=== PATIENT | male | born 1980 | race Caucasian/White ===

== ENCOUNTER 2017-09-11 00:27 | Emergency (ER) | payer OTHER ==
[~2017-09-11] VITALS: Ht 180.3 cm; Wt 90.0 kg
[2017-09-11 00:45] VITALS: BP 129/75; PULSE 125; RESP 18; TEMP 98.7; O2SAT 96
[2017-09-11 00:55] LABS: AUTOMATED NEUTROPHIL # 3.4 TH/MM3 (1.8-7.7); BASOPHIL # 0.1 TH/MM3 (0-0.2); EOSINOPHIL % 0.2 % (0.0-4.0); HEMATOCRIT 39.1 % (39.0-51.0); HEMOGLOBIN 13.9 GM/DL (13.0-17.0); LYMPH % 35.5 % (9.0-44.0); LYMPHOCYTE # 2.3 TH/MM3 (1.0-4.8); MEAN CELL VOLUME 99.5 FL (80.0-100.0); MEAN CORPUSCULAR HEMOGLOBIN 35.5 PG (27.0-34.0); MEAN CORPUSCULAR HGB CONC 35.6 % (32.0-36.0); MEAN PLATELET VOLUME 7.4 FL (7.0-11.0); MONO % 10.2 % (0.0-8.0); MONOCYTE # 0.7 TH/MM3 (0-0.9); NEUT % 53.1 % (16.0-70.0); PLATELET COUNT 184 TH/MM3 (150-450); RED BLOOD COUNT 3.93 MIL/MM3 (4.50-5.90); RED CELL DISTRIBUTION WIDTH 12.7 % (11.6-17.2); WHITE BLOOD COUNT 6.4 TH/MM3 (4.0-11.0)
[2017-09-11 01:13] LABS: ALBUMIN 4.5 GM/DL (3.4-5.0); ALT (GPT) 87 U/L (12-78); AST (GOT) 83 U/L (15-37); BICARBONATE 22.3 MEQ/L (21.0-32.0); BLOOD UREA NITROGEN 12 MG/DL (7-18); CALCIUM 8.5 MG/DL (8.5-10.1); CHLORIDE 104 MEQ/L (98-107); GLOMERULAR FILTRATION RATE 75 ML/MIN (>89); GLUCOSE,RANDOM 83 MG/DL (74-106); SODIUM (NA) 143 MEQ/L (136-145)
[2017-09-11 01:24] LABS: ALKALINE PHOSPHATASE 71 U/L (45-117); TOTAL BILIRUBIN ADULT 0.3 MG/DL (0.2-1.0); TOTAL PROTEIN 8.2 GM/DL (6.4-8.2)
[2017-09-11 01:25] LABS: ACETAMINOPHEN LESS THAN 2.0 MCG/ML (10.0-30.0)
[2017-09-11 01:53] VITALS: PULSE 98
--- NOTE | 2017-09-11 02:06 | PD ---
HPI Chief Complaint: Suicide Ideation/Attempt Time Seen by Provider: 00:45 Travel History International Travel<30 days: No Contact w/Intl Traveler<30days: No Traveled to known affect area: No History of Present Illness HPI Patient is 37-year-old male presenting to the emergency department under Myles act for psychiatric evaluation after making statements regarding hurting a coworker and shooting himself in the head. She reports that he has been drinking this evening. He denies any previous suicide attempt or psychiatric history. He states he got medical worker because he was trying to get him in trouble at work. Patient has no physical complaints at this time. He denies any hallucinations. He denies any illicit drug use. Symptom onset was fairly sudden related to the incident at work, symptoms are moderate in nature. PFSH Past Medical History Medical History: Denies Significant Hx Hx Anticoagulant Therapy: No Cardiovascular Problems: No Chemotherapy: No Cerebrovascular Accident: No Diabetes: No Respiratory: No ?: Not Past Surgical History Hysterectomy: No Social History Alcohol Use: Yes Tobacco Use: Yes Substance Use: Yes Allergies-Medications Reported Meds & Prescriptions Reported Meds & Active Scripts Active Review of Systems Except as stated in HPI: all other systems reviewed are Neg Psychiatric: Positive: Suicidal Ideations, Substance Abuse, Homicidal Ideation Physical Exam Exam Limitations: Intoxication Narrative GENERAL: Well-developed, well-nourished, alert male. Presenting in no acute distress. SKIN: Warm and dry. HEAD: Atraumatic. Normocephalic. EYES: Pupils equal and round. No scleral icterus. No injection or drainage. ENT: No nasal bleeding or discharge. Mucous membranes pink and moist. NECK: Trachea midline. No JVD. CARDIOVASCULAR: Tachycardic RESPIRATORY: No accessory muscle use. Clear to auscultation. Breath sounds equal bilaterally. GASTROINTESTINAL: Abdomen soft, non-tender, nondistended. Hepatic and splenic margins not palpable. MUSCULOSKELETAL: Extremities without clubbing, cyanosis, or edema. No obvious deformities. NEUROLOGICAL: Awake and alert. No obvious cranial nerve deficits. Motor grossly within normal limits. Five out of 5 muscle strength in the arms and legs. Normal speech. PSYCHIATRIC: Appropriate mood and affect; insight and judgment normal. Data Data Last Documented VS Vital Signs Date Time Temp Pulse Resp B/P (MAP) Pulse Ox O2 Delivery O2 Flow Rate FiO2 09/11/17 01:53 98 09/11/17 00:45 98.7 18 129/75 (93) 96 Orders Orders Complete Blood Count With Diff (09/11/17 00:45) Comprehensive Metabolic Panel (09/11/17 00:45) Thyroid Stimulating Hormone (09/11/17 00:45) Psych Screen (09/11/17 00:45) Drug Screen, Random Urine (09/11/17 00:45) Alcohol (Ethanol) (09/11/17 00:45) Salicylates (Aspirin) (09/11/17 00:45) Tylenol (Acetaminophen) (09/11/17 00:45) Labs Laboratory Tests Test 09/11/17 00:37 09/11/17 00:51 White Blood Count 6.4 TH/MM3 Red Blood Count 3.93 MIL/MM3 Hemoglobin 13.9 GM/DL Hematocrit 39.1 % Mean Corpuscular Volume 99.5 FL Mean Corpuscular Hemoglobin 35.5 PG Mean Corpuscular Hemoglobin Concent 35.6 % Red Cell Distribution Width 12.7 % Platelet Count 184 TH/MM3 Mean Platelet Volume 7.4 FL Neutrophils (%) (Auto) 53.1 % Lymphocytes (%) (Auto) 35.5 % Monocytes (%) (Auto) 10.2 % Eosinophils (%) (Auto) 0.2 % Basophils (%) (Auto) 1.0 % Neutrophils # (Auto) 3.4 TH/MM3 Lymphocytes # (Auto) 2.3 TH/MM3 Monocytes # (Auto) 0.7 TH/MM3 Eosinophils # (Auto) 0.0 TH/MM3 Basophils # (Auto) 0.1 TH/MM3 CBC Comment DIFF FINAL Differential Comment Blood Urea Nitrogen 12 MG/DL Creatinine 1.10 MG/DL Random Glucose 83 MG/DL Total Protein 8.2 GM/DL Albumin 4.5 GM/DL Calcium Level 8.5 MG/DL Alkaline Phosphatase 71 U/L Aspartate Amino Transf (AST/SGOT) 83 U/L Alanine Aminotransferase (ALT/SGPT) 87 U/L Total Bilirubin 0.3 MG/DL Sodium Level 143 MEQ/L Potassium Level 3.7 MEQ/L Chloride Level 104 MEQ/L Carbon Dioxide Level 22.3 MEQ/L Anion Gap 17 MEQ/L Estimat Glomerular Filtration Rate 75 ML/MIN Thyroid Stimulating Hormone 3rd Gen 1.070 uIU/ML Salicylates Level 2.6 MG/DL Acetaminophen Level LESS THAN 2.0 MCG/ML Ethyl Alcohol Level 398 MG/DL Urine Opiates Screen NEG Urine Barbiturates Screen NEG Urine Amphetamines Screen NEG Urine Benzodiazepines Screen NEG Urine Cocaine Screen NEG Urine Cannabinoids Screen POS MDM Medical Decision Making Medical Screen Exam Complete: Yes Emergency Medical Condition: Yes Interpretation(s) Laboratory Tests Test 09/11/17 00:37 09/11/17 00:51 White Blood Count 6.4 TH/MM3 Red Blood Count 3.93 MIL/MM3 Hemoglobin 13.9 GM/DL Hematocrit 39.1 % Mean Corpuscular Volume 99.5 FL Mean Corpuscular Hemoglobin 35.5 PG Mean Corpuscular Hemoglobin Concent 35.6 % Red Cell Distribution Width 12.7 % Platelet Count 184 TH/MM3 Mean Platelet Volume 7.4 FL Neutrophils (%) (Auto) 53.1 % Lymphocytes (%) (Auto) 35.5 % Monocytes (%) (Auto) 10.2 % Eosinophils (%) (Auto) 0.2 % Basophils (%) (Auto) 1.0 % Neutrophils # (Auto) 3.4 TH/MM3 Lymphocytes # (Auto) 2.3 TH/MM3 Monocytes # (Auto) 0.7 TH/MM3 Eosinophils # (Auto) 0.0 TH/MM3 Basophils # (Auto) 0.1 TH/MM3 CBC Comment DIFF FINAL Differential Comment Blood Urea Nitrogen 12 MG/DL Creatinine 1.10 MG/DL Random Glucose 83 MG/DL Total Protein 8.2 GM/DL Albumin 4.5 GM/DL Calcium Level 8.5 MG/DL Alkaline Phosphatase 71 U/L Aspartate Amino Transf (AST/SGOT) 83 U/L Alanine Aminotransferase (ALT/SGPT) 87 U/L Total Bilirubin 0.3 MG/DL Sodium Level 143 MEQ/L Potassium Level 3.7 MEQ/L Chloride Level 104 MEQ/L Carbon Dioxide Level 22.3 MEQ/L Anion Gap 17 MEQ/L Estimat Glomerular Filtration Rate 75 ML/MIN Thyroid Stimulating Hormone 3rd Gen 1.070 uIU/ML Salicylates Level 2.6 MG/DL Acetaminophen Level LESS THAN 2.0 MCG/ML Ethyl Alcohol Level 398 MG/DL Urine Opiates Screen NEG Urine Barbiturates Screen NEG Urine Amphetamines Screen NEG Urine Benzodiazepines Screen NEG Urine Cocaine Screen NEG Urine Cannabinoids Screen POS Vital Signs Date Time Temp Pulse Resp B/P (MAP) Pulse Ox O2 Delivery O2 Flow Rate FiO2 09/11/17 01:53 98 09/11/17 00:45 98.7 125 18 129/75 (93) 96 Differential Diagnosis Substance abuse versus mood disorder versus intoxication versus homicidal ideations or suicidal ideations versus other Narrative Course Patient is 37-year-old male presenting under Myles act for psychiatric evaluation. Patient admits to drinking alcohol this evening. He denies any current suicidal homicidal ideations. Patient is tachycardic on arrival otherwise vital signs are stable. Mental health screening discussed with the patient. Psychiatric screen ordered. Heart rate was reassessed, is currently 98. Labs reviewed, blood alcohol level is 398, urine drug screen is positive for marijuana. Labs are otherwise without acute findings. Patient is medically cleared for psychiatric evaluation. Diagnosis Primary Impression: Medical clearance for psychiatric admission Condition: Stable Cami Mclaughlin September 11, 2017 02:06
[2017-09-11 06:17] VITALS: BP 131/91; PULSE 78; RESP 18; O2SAT 98
[2017-09-11] MEDS ORDERED: RANITIDINE HCL SYRUP 150 MG/10 ML UDC PO ONE (06:30)
[2017-09-11] MEDS ORDERED: NICOTINE 14 MG/24 HR PATCH T-DERMAL ONE (06:30)
--- NOTE | 2017-09-11 08:27 | PD.PSY.CON ---
Provisional Diagnosis Admission Date Date of consultation 09/11/2017 [place] I. 1. Alcohol dependence with intoxication, intoxication now resolved [place] II. Deferred History of Present Illness Service Psychiatry Consult Requested By Emergency department Reason for Consult Myles act Primary Care Physician No Primary Care Physician HPI Mr. Stout is a 37-year-old male with no reported past psychiatric history who presents under a Myles act by law enforcement alleging that the patient was threatening to shoot himself in the head or hang himself. Patient's alcohol level was 398 and his urine toxicology was positive for cannabinoids. Reviewing the electronic medical record, I see no previous psychiatric contact within our system. Patient seen and examined. Chart reviewed. Case discussed with nursing staff. No evidence of any suicidality or homicidality while the patient has been under observation in the J pod. Nurse has obtained reassuring collateral from the patient's mother. On my examination today, the patient is clinically sober. He denies any suicidal or homicidal ideation, intent or plan and contracts for safety. He tells me "I love to live." Wants to live for his children. He denies the allegations in the Myles act. I can elicit no depressive or hypomanic/manic symptoms. He denies any audiovisual hallucinations. I can elicit no paranoia, no ideas of reference, no thought insertion or withdrawal or other delusional material. Remainder of the psychiatric ROS is negative. No acute physical complaints. Patient is requesting discharge from the ER this morning. Past psychiatric history: Patient denies a history of psychiatric diagnosis. He denies a history of inpatient or outpatient psychiatric treatment. He denies a history of suicide attempts. Family history: Patient denies family history of mental illness or suicide. Chemical dependency history: Patient reports that he drinks bourbon and coke. He does have a history of blackouts in the past. He has been having some troubles at work secondary to his drinking. He denies any other consequences. He denies any history of DTs or seizures. He denies any other substance use. Patient says that he views his alcohol use as problematic but is not interested in obtaining detoxification services today. He says that he will simply try to drink less. I have cautioned him against trying to detoxify himself, noting that this is a very risky proposition and that there is a not insignificant risk of morbidity and mortality associated with it. Social history: Patient was with his father. He has known his girlfriend Debra for 3 months. He is . He has 2 teenaged children who live with her grandmother. He works as a fast food fry cook. He is high school educated and has some college. Denies any history. Denies any legal history. Denies any access to guns or firearms. With patient's permission, I endeavored to reach his father at number listed in the Myles act (left generic VM) as well as patient's girlfriend (number is GFs workplace, and GF is not at work today). Review of Systems Except as stated in HPI: all other systems reviewed are Neg Past Family Social History Coded Allergies: No Known Allergies (Unverified , 09/11/17) Past Medical History Patient denies any medical problems and takes no general medical medications. Patient's Strengths (min. 2) Attending to basic needs. Verbally fluent. Physical Exam Physical examination completed by ED provider. On my examination today, the patient appears to be in no acute physical distress. No motor abnormalities noted. No signs of intoxication or withdrawal noted. Labs and vitals reviewed: Vital Signs Vital Signs Date Time Temp Pulse Resp B/P (MAP) Pulse Ox O2 Delivery O2 Flow Rate FiO2 09/11/17 06:17 78 18 131/91 (104) 98 Room Air 09/11/17 00:45 98.7 Lab Results Test 09/11/17 00:37 09/11/17 00:51 White Blood Count 6.4 TH/MM3 Red Blood Count 3.93 MIL/MM3 Hemoglobin 13.9 GM/DL Hematocrit 39.1 % Mean Corpuscular Volume 99.5 FL Mean Corpuscular Hemoglobin 35.5 PG Mean Corpuscular Hemoglobin Concent 35.6 % Red Cell Distribution Width 12.7 % Platelet Count 184 TH/MM3 Mean Platelet Volume 7.4 FL Neutrophils (%) (Auto) 53.1 % Lymphocytes (%) (Auto) 35.5 % Monocytes (%) (Auto) 10.2 % Eosinophils (%) (Auto) 0.2 % Basophils (%) (Auto) 1.0 % Neutrophils # (Auto) 3.4 TH/MM3 Lymphocytes # (Auto) 2.3 TH/MM3 Monocytes # (Auto) 0.7 TH/MM3 Eosinophils # (Auto) 0.0 TH/MM3 Basophils # (Auto) 0.1 TH/MM3 CBC Comment DIFF FINAL Differential Comment Blood Urea Nitrogen 12 MG/DL Creatinine 1.10 MG/DL Random Glucose 83 MG/DL Total Protein 8.2 GM/DL Albumin 4.5 GM/DL Calcium Level 8.5 MG/DL Alkaline Phosphatase 71 U/L Aspartate Amino Transf (AST/SGOT) 83 U/L Alanine Aminotransferase (ALT/SGPT) 87 U/L Total Bilirubin 0.3 MG/DL Sodium Level 143 MEQ/L Potassium Level 3.7 MEQ/L Chloride Level 104 MEQ/L Carbon Dioxide Level 22.3 MEQ/L Anion Gap 17 MEQ/L Estimat Glomerular Filtration Rate 75 ML/MIN Thyroid Stimulating Hormone 3rd Gen 1.070 uIU/ML Salicylates Level 2.6 MG/DL Acetaminophen Level LESS THAN 2.0 MCG/ML Ethyl Alcohol Level 398 MG/DL Urine Opiates Screen NEG Urine Barbiturates Screen NEG Urine Amphetamines Screen NEG Urine Benzodiazepines Screen NEG Urine Cocaine Screen NEG Urine Cannabinoids Screen POS Mental Status Examination Appearance: Appropriate Consciousness: Alert Orientation: x4 Motor Activity: Other (No motor abnormalities noted) Speech: Unremarkable Language: Adequate Fund of Knowledge: Adequate Attention and Concentration: Adequate Memory: Unremarkable (Grossly intact on clinical exam) Mood: Appropriate Affect: Appropriate Thought Process & Associations: Intact, Logical, Goal directed, Linear Thought Content: Appropriate Hallucination Type: None Delusion Type: None Suicidal Ideation: No Suicidal Plan: No Suicidal Intention: No Homicidal Ideation: No Homicidal Plan: No Homicidal Intention: No Mental Status Exam Remarks Insight and judgment are perhaps fair to poor, particularly with regards to substance use issues. Assessment & Plan Problem List: (1) Alcohol dependence with intoxication, uncomplicated ICD Codes: F10.220 - Alcohol dependence with intoxication, uncomplicated Assessment & Plan 37-year-old male with psychiatric history as detailed above who presents under Myles act. Now that he is clinically sober, the patient denies any suicidal or homicidal ideation. There is no evidence of unstable mental illness has defined under the Myles act in this patient at this time. He does have alcohol use issues. There is no evidence of significant self-care deficit. Nurse has obtained reassuring collateral from patient's mother. Synthesizing this information and based on the available evidence, I us administrative law judge that the patient does not presently meet the Myles act criteria. I have lifted the Myles act. I have recommended that he allow us to get him to a detoxification facility today , but he has declined. I have therefore recommended outpatient chemical dependency evaluation and treatment, and the nurse will provide the appropriate referrals. I have counseled the patient regarding warning signs for need to return to the psychiatric emergency room as part of a general safety plan. Patient is otherwise psychiatrically clear for discharge from the ED. Thank you very much for this consultation. John Webster MD September 11, 2017 08:27
--- NOTE | 2017-09-11 10:34 | PD ---
Data Data Last Documented VS Vital Signs Date Time Temp Pulse Resp B/P (MAP) Pulse Ox O2 Delivery O2 Flow Rate FiO2 09/11/17 06:17 78 18 131/91 (104) 98 Room Air 09/11/17 00:45 98.7 Orders Orders Complete Blood Count With Diff (09/11/17 00:45) Comprehensive Metabolic Panel (09/11/17 00:45) Thyroid Stimulating Hormone (09/11/17 00:45) Psych Screen (09/11/17 00:45) Drug Screen, Random Urine (09/11/17 00:45) Alcohol (Ethanol) (09/11/17 00:45) Salicylates (Aspirin) (09/11/17 00:45) Tylenol (Acetaminophen) (09/11/17 00:45) Diet Regular Basic (09/11/17 Breakfast) Ranitidine Liq (Zantac Liq) (09/11/17 06:30) Nicotine 14 Mg Patch.24 Hr (Habitrol 14 (09/11/17 06:30) Labs Laboratory Tests Test 09/11/17 00:37 09/11/17 00:51 White Blood Count 6.4 TH/MM3 Red Blood Count 3.93 MIL/MM3 Hemoglobin 13.9 GM/DL Hematocrit 39.1 % Mean Corpuscular Volume 99.5 FL Mean Corpuscular Hemoglobin 35.5 PG Mean Corpuscular Hemoglobin Concent 35.6 % Red Cell Distribution Width 12.7 % Platelet Count 184 TH/MM3 Mean Platelet Volume 7.4 FL Neutrophils (%) (Auto) 53.1 % Lymphocytes (%) (Auto) 35.5 % Monocytes (%) (Auto) 10.2 % Eosinophils (%) (Auto) 0.2 % Basophils (%) (Auto) 1.0 % Neutrophils # (Auto) 3.4 TH/MM3 Lymphocytes # (Auto) 2.3 TH/MM3 Monocytes # (Auto) 0.7 TH/MM3 Eosinophils # (Auto) 0.0 TH/MM3 Basophils # (Auto) 0.1 TH/MM3 CBC Comment DIFF FINAL Differential Comment Blood Urea Nitrogen 12 MG/DL Creatinine 1.10 MG/DL Random Glucose 83 MG/DL Total Protein 8.2 GM/DL Albumin 4.5 GM/DL Calcium Level 8.5 MG/DL Alkaline Phosphatase 71 U/L Aspartate Amino Transf (AST/SGOT) 83 U/L Alanine Aminotransferase (ALT/SGPT) 87 U/L Total Bilirubin 0.3 MG/DL Sodium Level 143 MEQ/L Potassium Level 3.7 MEQ/L Chloride Level 104 MEQ/L Carbon Dioxide Level 22.3 MEQ/L Anion Gap 17 MEQ/L Estimat Glomerular Filtration Rate 75 ML/MIN Thyroid Stimulating Hormone 3rd Gen 1.070 uIU/ML Salicylates Level 2.6 MG/DL Acetaminophen Level LESS THAN 2.0 MCG/ML Ethyl Alcohol Level 398 MG/DL Urine Opiates Screen NEG Urine Barbiturates Screen NEG Urine Amphetamines Screen NEG Urine Benzodiazepines Screen NEG Urine Cocaine Screen NEG Urine Cannabinoids Screen POS MDM Medical Record Reviewed: Yes Supervised Visit with RIO: No Narrative Course See previous providers notes. This patient was previously medically cleared. He has now cleared by psychiatry and the Myles act has been lifted. He has no medical issues that would warrant further hospitalization. He is stable for discharge. Diagnosis Primary Impression: Alcohol dependence with intoxication, uncomplicated Additional Impression: Medical clearance for psychiatric admission Patient Instructions: General Instructions, Alcohol Intoxication (ED), Alcohol Dependence (ED) Departure Forms: Tests/Procedures Disposition: 01 DISCHARGE HOME Condition: Stable Darnell Croft September 11, 2017 10:34
== END 2017-09-11 11:03 | disposition home or self-care (01) ==
LOC: NEPJ 00:27
DX: F10.220 Alcohol dependence with intoxication, uncomplicated (principal); Y90.8 Blood alcohol level of 240 mg/100 ml or more; Z72.0 Tobacco use
CPT/HCPCS: 80053; 80307; 84443; 85025; 99283